=== PATIENT | female | born 1985 | race Caucasian/White ===

== ENCOUNTER 2018-02-20 07:59 | Inpatient (IN) ==
[2018-02-20] MEDS ORDERED: BUTORPHANOL TARTRATE 2 MG/1 ML VIAL IVP PRN (08:56)
[2018-02-20] MEDS ORDERED: CITRIC ACID/SODIUM CITRATE 30 ML CUP PO PRN (08:56)
[2018-02-20] MEDS ORDERED: Metoclopramide Inj 10 MG/2 ML VIAL IV PRN (08:56)
[2018-02-20] MEDS ORDERED: FAMOTIDINE 20 MG/2 ML VIAL IVP PRN ×2 (08:56)
[2018-02-20] MEDS ORDERED: Lidocaine 1% 10 MG/ML - 20 ML VIAL SUBCUT PRN (08:56)
[2018-02-20] MEDS ORDERED: CALCIUM CARBONATE 500 MG (TUMS) CHEWABLE TABLET PO PRN ×2 (08:56→19:32)
[2018-02-20] MEDS ORDERED: Carboprost Inj 250 MCG/ML AMP IM PRN (08:56)
[2018-02-20] MEDS ORDERED: LIDOCAINE W/ SODIUM BICARB 0.5 ML SYR SUBD PRN (08:56)
[2018-02-20] MEDS ORDERED: ePHEDrine Inj 50 MG/ML AMP IVP PRN (08:56)
[2018-02-20] MEDS ORDERED: NALOXONE 0.4 MG/1 ML VIAL IVP PRN (08:56)
[2018-02-20] MEDS ORDERED: CefOXitin Inj 2 GM in Sodium Chloride 0.9% 100 ML IV PRN (08:56)
[2018-02-20] MEDS ORDERED: ONDANSETRON 4 MG/2 ML VIAL IVP PRN ×2 (08:56→19:32)
[2018-02-20] MEDS ORDERED: Nalbuphine Inj 20 MG/ML Ampule IVP PRN ×2 (08:56→19:32)
[2018-02-20] MEDS ORDERED: Naloxone Inj 0.01 MG in Sodium Chloride 0.9% vial 1 ML IVP PRN (08:56)
[2018-02-20] MEDS ORDERED: MISOPROSTOL 200 MCG TABLET RECTAL PRN (08:56)
[2018-02-20] MEDS ORDERED: fentaNYL Inj 100 MCG/2 ML VIAL IV PRN (08:56)
[2018-02-20] MEDS ORDERED: METHYLERGONOVINE MALEATE 0.2 MG/1 ML VIAL IM PRN (08:56)
[2018-02-20] MEDS ORDERED: TERBUTALINE SULFATE 1 MG/1 ML SDV SUBCUT PRN (08:56)
[2018-02-20] MEDS ORDERED: diphenhydrAMINE 50 MG/1 ML VIAL IVP PRN ×2 (08:56→19:32)
[2018-02-20] MEDS ORDERED: LIDOCAINE HCL 2 % 10 ML JELLY URO-JECT TOPICAL PRN ×2 (08:56→19:32)
[2018-02-20] MEDS ORDERED: Phenylephrine Inj 50 MCG in Sodium Chloride 0.9% vial 0.5 ML IVP PRN (08:56)
[2018-02-20] MEDS ORDERED: OXYTOCIN 10 UNIT/1 ML IM PRN (08:56)
[2018-02-20] MEDS ORDERED: Oxytocin 20 Units + LR 20 UNIT/1,000 ML BAG IV SCH ×2 (09:00→10:45)
[2018-02-20 10:14] LABS: Hematocrit [HCT] 37.2 % (37.0-47.0); Hemoglobin [HGB] 12.8 g/dL (12.0-16.0); MEAN CORPUSCULAR HEMOGLOBIN 31.2 PG (27-31); MEAN CORPUSCULAR HGB CONC 34.4 g/dL (33-37); MEAN CORPUSCULAR VOLUME 90.7 FL (81-99); MEAN PLATELET VOLUME 10.9 FL (7.4-12.2); RED BLOOD COUNT 4.1 10^6/uL (4.20-5.40)
[2018-02-20] MEDS: Lactated Ringers-OB Dept 1,000 ML PRIMARY IV SCH ×3 (10:15→17:56)
[2018-02-20] MEDS ORDERED: Fent/Bupiv 2mcg/0.0625% Epid 250 ML ONE (12:42)
--- NOTE | 2018-02-20 13:04 | CRNA.PROGR ---
Anesthesia Time - Procedure/Recovery Time Start Date: 02/20/18 Anesthesia : Time In: 12:19 Anesthesia : Time Out: 17:15 - Other Weight: 76.657 kg Height: 5 ft 6 in Body Mass Index (BMI): 27.2 Physical Status: P2 Anesthesia Type: Epidural Obstetrics: Planned vaginal delivery w/ neuraxial labor anesthesia/analog
--- NOTE | 2018-02-20 13:09 | CRNA.PROCE ---
Central Neuraxis Block Placemt - - Safety Measures: Time Out Taken - - Type of Block: Epidural Reason for Block: Analgesia Moniters Used During Block: SPO2, NIBP Positioning: Sitting Skin Prep Used: ChloroPrep (Twice) Skin Infiltration - Enter Amount Used in Comment Field: 1% Xylocaine (mL): Yes ( 1.5) Spinal Needle Used: 18 Hustead 80 mm Local Anesthetic - Enter Amount Used in Comment Field: 1.5 % Xylocaine with Epinephrine 1:200,000 (mL): Yes (4 ml at 1228) Number of Centimeters Catheter Threaded: 3.5 Bioclusive Dressing Applied: Yes (ski prep under all adhesive) - - Additional Details: Test dose negative for IV or SAB. Started infusion. Pump settings checked with Anuja THOMAS. See orders. Epidural shut off because patient too comfortable. Baby delivered, . Anesthesia Time - Other Weight: 76.657 kg Height: 5 ft 6 in Body Mass Index (BMI): 27.2
--- NOTE | 2018-02-20 13:45 | OB.PROGRES ---
Date of Service: 02/20/18 Time of Service: 13:15 Interval History: Pt presented to labor and delivery this morning with questionable leakage of fluid and contractions. She reports that she maybe started leaking some fluid last noc around 2200. She rolled over in bed a few hours later and thought that she may be leaking more fluid. She presented to labor and delivery this morning for evaluation. Her contractions were about 7 minutes apart on presentation. She reports that baby has been moving normally, denies any vaginal bleeding or abnormal discharge. Objective - Cervical Exam Cervical Exam: 4-5/90/-1 per RN at 1300 [place]: 3-6 minutes apart, palpating moderate. Still pretty irregular. Heart Rate: 150 baseline, no decels noted. + accels. Heart Rate Interpretation Category: Category I - Labs CBC and BMP: 02/20/18 10:00 - Vital Signs Last Taken Vital Signs: Vital Signs - Last Taken Temperature 98.1 F 02/20/18 08:07 Pulse Rate 66 02/20/18 12:40 Respiratory Rate 18 02/20/18 12:40 Blood Pressure 119/59 02/20/18 12:40 Pulse Ox 99 02/20/18 12:40 Assessment and Plan - Patient Problems (1) Term Current Visit: Yes Status: Acute Code(s): Z34.80 - Encounter for supervision of other normal , unspecified trimester - Assessment / Plan Additional Assessment/Plan Details: -GBS + with rupture of membranes possibly as early as last noc--started ampicillin for GBS shortly after the pt presented. Repeat amp every 4 hours. Will monitor baby closely for signs of sepsis. -currently very comfortable with epidural for analgesia. -expectant management.
[2018-02-20] MEDS ORDERED: Ampicillin Inj 1 GM in Sodium Chloride 0.9% 100 ML IV SCH ×2 (14:30→16:30)
[2018-02-20] MEDS: Oxytocin 20 Units + LR 20 UNIT/1,000 ML BAG IV SCH ×2 (18:00→21:00)
--- NOTE | 2018-02-20 18:57 | OB.DEL.SUM ---
Delivery Note Delivery Summary: Pt is a G1 now P1, at 40 2/7 weeks by early u/s, who presented with spontaneous rupture of membranes that occurred around 2229 last noc. Amnisure was positive upon arrival to the L&D unit this morning. Cervix was 3-4/90/-2. She had a previous GBS positive culture and received her first dose of ampicillin at 1030 this morning. She was brenda intermittently, so pitocin augmentation was started secondary to her GBS positive status. An epidural was placed for analgesia. Cervix was 4-5/90/-1 at 1300. She was noted to be completely dilated and +1 station at 1520; she began pushing a short time later. She delivered a viable female infant, over a first degree mediolateral episiotomy which was done to prevent a large laceration as the pt had a tight introitus. Baby's nose and mouth were suctioned with the bulb suction and she was dried and stimulated. Baby was placed on mom's chest. Cord clamping was delayed 45 seconds. The cord was then clamped by myself and cut by the father of the baby. Cord blood and cord gases were obtained for analysis. Time of delivery was 1655. External uterine massage was employed and the placenta slowly came down into the vagina with minimal pulling on the umbilical cord. When the placenta appeared at the introitus, I felt behind it and felt a firm mass, which I believed was the uterine wall. At that time, I called Dr. Faulkner in to the unit to assist. I did try to replace the uterus back into the pelvis, but it didn't go easily and the pt was not hemorrhaging, so I waited for Dr. Faulkner to arrive. He was able to replace the uterus back into the pelvis and pushed the fundus back into the appropriate position. The placenta delivered some time during the replacement of the uterus--approximately 1710. After replacement of the uterus, pitocin 20 mU was run wide open. The pt had moderate bleeding, which was deemed appropriate for vaginal delivery. A second bag of pitocin will be run. The vagina and perineum were examined and the first degree vaginal laceration was noted and repaired in the normal fashion with 3-0 vicryl rapide suture. There was excellent hemostasis. Two bilateral periurethral lacerations were noted and hemostatic and thus not repaired. EBL 500 cc. Apgars were 9 at 1 minute and 10 at 5 minutes. Baby weighed 6#9.7oz and was 19 inches long. Both mom and baby are in stable condition at this time. - Patient Problems (1) Term Current Visit: Yes Status: Acute Code(s): Z34.80 - Encounter for supervision of other normal , unspecified trimester
[2018-02-20] MEDS ORDERED: GLYCERIN/WITCH HAZEL 1 BOX TOPICAL PRN (19:32)
[2018-02-20] MEDS ORDERED: ACETAMINOPHEN 325 MG TABLET PO PRN (19:32)
[2018-02-20] MEDS ORDERED: LANOLIN HPA 40 GM TUBE TOPICAL PRN (19:32)
[2018-02-20] MEDS ORDERED: diphenhydrAMINE 25 MG CAPSULE PO PRN (19:32)
[2018-02-20] MEDS ORDERED: DIPH,PERTUSS,TET(ADACEL) VAC/PF 0.5 ML (Tdap) IM ONE (19:32)
[2018-02-20] MEDS ORDERED: Ondansetron ODT Tab 4 MG TAB PO PRN (19:32)
[2018-02-20] MEDS ORDERED: BENZOCAINE/MENTHOL SPRAY 56 GM BOTTLE TOPICAL PRN (19:32)
[2018-02-20] MEDS: Ertapenem Inj 1 GM in Sodium Chloride 0.9% 100 ML IV SCH (22:04)
[2018-02-21] MEDS: IBUPROFEN 800 MG TABLET PO PRN ×3 (02:28→21:21)
[2018-02-21] MEDS: HYDROcodone-APAP 5 MG -325 MG TABLET PO PRN ×4 (05:15→21:22)
[2018-02-21 05:50] LABS: Hematocrit [HCT] 29.8 % (37.0-47.0); Hemoglobin [HGB] 9.9 g/dL (12.0-16.0); MEAN CORPUSCULAR HEMOGLOBIN 30.7 PG (27-31); MEAN CORPUSCULAR HGB CONC 33.2 g/dL (33-37); MEAN CORPUSCULAR VOLUME 92.3 FL (81-99); MEAN PLATELET VOLUME 11.1 FL (7.4-12.2); RED BLOOD COUNT 3.23 10^6/uL (4.20-5.40)
[2018-02-21] MEDS: Prenatal Multivitamin Tab 1 TAB TAB PO SCH (09:12)
[2018-02-21] MEDS: DOCUSATE 100 MG CAPSULE PO SCH ×2 (09:13→21:23)
--- NOTE | 2018-02-21 09:41 | OB.PROGRES ---
Subjective Post Day: 1 Pain Management: PO [place] Catheter: No Flatus: Yes Lochia Color: Rubra/Red Small 10-25 ml Diet: Regular Feeding Method: Exculsively Ambulating: Yes Objective - General General Appearance: POSITIVE: No Acute Distress, Cooperative - Cardiovacular Cardiovascular Exam: POSITIVE: RRR, No Murmur Edema: +1 Pedal Edema Extremities: Negative Debra's - Bilaterally - Respiratory Respiratory Exam: POSITIVE: Clear to Auscultation - Bilaterally, Breathing Non Labored - Abdomen Bowel Sounds: Present Assesstment / Plan (1) Term Current Visit: Yes Status: Acute (2) Status post vaginal delivery Current Visit: Yes Status: Acute Assessment / Plan: -routine cares. -continue to assist as needed for breast feeding--Public Health called and will assist. -start iron for mild anemia. Ok to d/c IV. -rubella immune. -rh positive. -likely d/c home tomorrow.
--- NOTE | 2018-02-21 12:49 | DI ---
US Pelvic Limited (Non-OB) 02/21/2018 7:00 AM History: [facility] [facility] [place] ^uterine [place] ^ensure normal-appearing uterine anatomy Comparison: None. Procedure: Routine transabdominal and endovaginal huerta scale and Doppler pelvic ultrasound. LMP: . Findings: The uterus measures 14.9 x 6.9 x 11.6 cm and demonstrates an anteverted orientation. There is an echogenic mass in the lower uterine segment centered in the endometrial complex. It measures 3 .1 x 4.2 cm. There is no definite internal vascular flow. The remaining endometrial thickness measur es 11 mm. The right ovary measures 2.7 x 2.0 x 1.5 cm with normal morphology and vascular flow. The l eft ovary measures 2.0 x 3.3 x 1.3 cm with normal morphology and vascular flow. There is no adnexal mass. No free cul-de-sac fluid was present. Impression: 1. There is an echogenic mass in the lower uterine segment centered in the endometrial complex. There is no definite vascular flow within the mass. Differential considerations include clot versus retain ed products of conception. Clinical and laboratory followup is recommended with low threshold for rep eat imaging if no intervention is planned. 2. Normal sonographic morphology of the bilateral ovaries.
--- NOTE | 2018-02-21 13:09 | CRNA.PROGR ---
Anesthesia Note - Progress Notes Anesthesia Progress Note: Holding her infant cheerful. Comfortable. Denies headache or backache. Does say her back is a little sore at insertion site. Pleased with care. No apparent anesthetic difficulties.
[2018-02-21] MEDS: FERROUS GLUCONATE 324 MG TABLET PO SCH ×2 (21:23→21:30)
[2018-02-22 05:25] VITALS: TEMP 98
[2018-02-22] MEDS: Ertapenem Inj 1 GM in Sodium Chloride 0.9% 100 ML IV SCH (08:29)
[2018-02-22] MEDS: DOCUSATE 100 MG CAPSULE PO SCH ×2 (08:29→08:39)
--- NOTE | 2018-02-22 08:38 | DCSUMMARY ---
Hospitalization Summary Admit Date: 02/20/18 Discharge Date: 02/22/18 Primary Diagnosis:: Term IUP Secondary Diagnosis:: GBS+, s/p 2 doses of ampicillin prior to delivery Uterine inversion with fundal placenta; u/s done the day after delivery showed normal anatomy. Mild post- anemia Delivery Type: Vaginal Hospital Course: Pt was admitted with SROM at home about 10 hours prior to presentation at the hospital. She was brenda irregularly, so was augmented with pitocin. She went on to have a normal vaginal delivery, but did have a uterine inversion with her fundal placenta. This was reduced successfully per Dr. Faulkner with normal-appearing anatomy on u/s on PPD#1. She had a mild post- anemia, which was treated with oral ferrous gluconate. / Postop Complications: See above. On the day of discharge, baby is breast feeding better. Pt is voiding normally, tolerating a regular diet, bleeding less and requesting discharge home. [place] Complications: none Exam - Vitals Vital Signs: Vital Signs Temperature 98.0 F Temperature Source Oral Pulse Rate [Pulse Oximeter] 72 Pulse Rate 80 Respiratory Rate 16 Blood Pressure [Right Arm] 120/61 Blood Pressure 122/58 Pulse Ox 97 Oxygen Delivery Method Room Air Height 5 ft 6 in Weight 169 lb - General General Appearance: No Acute Distress, Cooperative - Head Head Exam: Normal Inspection - Eye Eye Exam: POSITIVE: Normal Appearance - ENT ENT Exam: POSITIVE: Normal Exam - Neck Neck Exam: Normal Inspection - Respiratory Respiratory Exam: POSITIVE: Clear to Auscultation - Bilaterally, Breathing Non Labored - Cardiovascular Cardiovascular Exam: POSITIVE: RRR, No Murmur - GI/Abdominal GI/Abdominal Exam: POSITIVE: Normal Bowel Sounds - Extremities Extremities Exam: POSITIVE: Normal Inspection, +1 Edema - Neurological Neurological Exam: POSITIVE: Alert, Oriented x 3 - Psychiatric Psychiatric Exam: POSITIVE: Normal Affect, Normal Mood - Integumentary Integumentary Exam: POSITIVE: Normal Color, Warm, Dry Patient Problems - Patient Problem List (1) Term Current Visit: Yes Status: Acute Code(s): Z34.80 - Encounter for supervision of other normal , unspecified trimester Category: Medical (2) Status post vaginal delivery Current Visit: Yes Status: Acute Category: Medical
[2018-02-22] MEDS: Prenatal Multivitamin Tab 1 TAB TAB PO SCH (08:39)
[2018-02-22] MEDS: FERROUS GLUCONATE 324 MG TABLET PO SCH (08:39)
[2018-02-22 09:02] VITALS: BP 132/70; RESP 17; O2SAT 98
[2018-03-01] MEDS ORDERED: fentaNYL 2 MCG/BUPIVACAINE 0.0625%/NS 0.9% 250 ML BAG EPIDURAL ONE (09:57)
== END 2018-02-22 09:50 | disposition home or self-care (01) | DRG 807 ==
LOC: OBOP 07:59 → OBIP 08:56
PROVIDERS: ADMIT Family Medicine; ATTEND Family Medicine